=== PATIENT | female | born 1995 | race Caucasian/White ===

== ENCOUNTER 2018-08-04 17:50 | Emergency (ER) | payer OTHER ==
--- NOTE | 2018-08-04 20:09 | ER Document Report ---
ED Medical Screen (RME) - General Chief Complaint: Leg Pain Stated Complaint: LEG SWELLING Time Seen by Provider: 08/04/18 19:59 TRAVEL OUTSIDE OF THE [place] IN LAST 30 DAYS: No - Related Data Allergies/Adverse Reactions: No Known Allergies Allergy (Unverified 08/04/18 17:56) Past Medical History - Social History Frequency of alcohol use: Occasional Renal/ Medical History: Denies: Hx Peritoneal Dialysis Past Surgical History: Reports: Hx Tonsillectomy Physical Exam - Vital signs Vitals: Temp Pulse Resp BP Pulse Ox 98.0 F 79 16 109/71 98 08/04/18 18:09 08/04/18 18:09 08/04/18 18:09 08/04/18 18:09 08/04/18 18:09 Course - Re-evaluation Re-evalutation: 08/04/18 20:09 22-year-old female presents for evaluation of a swollen left lower extremity following an 11-hour car trip. She was seen at urgent care and told to come to the emergency room for further investigation. We will obtain ultrasound of the left lower extremity will obtain test and CBC. I have seen and performed a rapid medical screening examination on this patient. This patient will require further evaluation and disposition determination by a secondary provider. - Vital Signs Vital signs: Temp Pulse Resp BP Pulse Ox 98.0 F 79 16 109/71 98 08/04/18 18:09 08/04/18 18:09 08/04/18 19:59 08/04/18 18:09 08/04/18 18:09
[2018-08-04 21:02] LABS: ABSOLUTE EOSINOPHILS # (AUTO) 0.3 10^3/uL (0.0-0.6); ABSOLUTE LYMPHOCYTES (AUTO) 1.9 10^3/uL (0.5-4.7); ABSOLUTE MONOCYTES (AUTO) 0.7 10^3/uL (0.1-1.4); ABSOLUTE NEUT (AUTO) 5.7 10^3/uL (1.7-8.2); BASOPHILS % (AUTO) 0.5 % (0-2); EOSINOPHILS % (AUTO) 3.1 % (0-6); HEMATOCRIT 42.7 % (36.0-47.0); HEMOGLOBIN 14.9 g/dL (12.0-15.5); LYMPHOCYTES % (AUTO) 22.1 % (13-45); MEAN CORPUSCULAR HEMOGLOBIN 29.5 pg (27.0-33.4); MEAN CORPUSCULAR HGB CONC 34.9 g/dL (32.0-36.0); MEAN CORPUSCULAR VOLUME 85 fl (80-97); MONOCYTES % (AUTO) 7.7 % (3-13); PLATELET COUNT 236 10^3/uL (150-450); RED BLOOD COUNT 5.05 10^6/uL (3.72-5.28); RED CELL DISTRIBUTION WIDTH 12.4 % (11.5-14.0); SEGMENTED NEUTROPHILS % (AUTO) 66.6 % (42-78); TOTAL CELLS COUNTED % (AUTO) 100 %; WHITE BLOOD COUNT 8.6 10^3/uL (4.0-10.5)
--- NOTE | 2018-08-04 22:22 | ER Document Report ---
ED Extremity Problem, Lower - General Chief Complaint: Leg Pain Stated Complaint: LEG SWELLING Time Seen by Provider: 08/04/18 19:59 Mode of Arrival: Ambulatory Information source: Patient TRAVEL OUTSIDE OF THE [place] IN LAST 30 DAYS: No - HPI Patient complains to provider of: Pain Location: Leg Occurred: This afternoon Onset/Duration: Gradual Quality of pain: Achy Severity: Mild Pain Level: 2 Recent injury: No Exacerbated by: Movement Notes: Patient is a 22-year-old female presenting to the emergency room complaining of pain in her left leg, patient just completed an [address] from [facility] and arrived to [facility] at 4 PM today, at which time she promptly signed herself into the emergency room because she was having pain in the left leg and was concerned about the possibility of a DVT, patient has no history of DVT, she does not smoke cigarettes, she did recently quit, and she does not currently take any [id number]-hphysrz contraceptive, there is no injury to the lower extremity, she denies any chest pain or shortness of breath, simply states that she saw something on a television show regarding a DVT and therefore became concerned after her long drive today - Related Data Allergies/Adverse Reactions: No Known Allergies Allergy (Unverified 08/04/18 17:56) Past Medical History - General Information source: Patient - Social History Smoking Status: Former Smoker Frequency of alcohol use: Occasional Family History: Reviewed & Not Pertinent Patient has suicidal ideation: No Patient has homicidal ideation: No Renal/ Medical History: Denies: Hx Peritoneal Dialysis Past Surgical History: Reports: Hx Tonsillectomy Review of Systems - Review of Systems Constitutional: No symptoms reported EENT: No symptoms reported Cardiovascular: No symptoms reported Respiratory: No symptoms reported Gastrointestinal: No symptoms reported Genitourinary: No symptoms reported Female Genitourinary: No symptoms reported Musculoskeletal: See HPI Skin: No symptoms reported Hematologic/Lymphatic: No symptoms reported Neurological/Psychological: No symptoms reported -: Yes All other systems reviewed and negative Physical Exam - Vital signs Vitals: Temp Pulse Resp BP Pulse Ox 98.0 F 79 16 109/71 98 08/04/18 18:09 08/04/18 18:09 08/04/18 18:09 08/04/18 18:09 08/04/18 18:09 - Notes Notes: - General General appearance: Appears well, Alert In distress: None - HEENT Head: Normocephalic, Atraumatic Eyes: Normal Conjunctiva: Normal Extraocular movements intact: Yes Eyelashes: Normal Pupils: PERRL - Respiratory Respiratory status: No respiratory distress - Cardiovascular Rhythm: Regular - Abdominal Inspection: Normal - Back Back: Normal - Extremities General upper extremity: Normal inspection General lower extremity: Slight tenderness to palpate in the left suprapatellar space, no calf tenderness, distal sensation and motor is intact - Neurological Neuro grossly intact: Yes Orientation: AAOx4 Nancy Coma Scale Eye Opening: Spontaneous Nancy Coma Scale Verbal: Oriented [place] Coma Scale Motor: Obeys Commands Nancy Coma Scale Total: 15 - Psychological Associated symptoms: Normal affect, Normal mood - Skin Skin Temperature: Warm Skin Moisture: Dry Skin Color: Normal Course - Re-evaluation Re-evalutation: 08/05/18 00:07 Lower extremity Dopplers negative for DVT, patient was therefore advised to drink plenty of fluids, take Motrin as needed for pain, follow-up with her primary care provider or return if symptoms worsen, patient acknowledges understanding and agreement with this plan - Vital Signs Vital signs: Temp Pulse Resp BP Pulse Ox 98.6 F 63 18 107/86 H 100 08/04/18 22:32 08/04/18 22:32 08/04/18 22:32 08/04/18 22:32 08/04/18 22:32 - Laboratory Result Diagrams: 08/04/18 20:55 - Diagnostic Test Radiology reviewed: Image reviewed, Reports reviewed Discharge - Discharge Clinical Impression: Leg pain, left Condition: Stable Disposition: HOME, SELF-CARE Instructions: Leg Pain Nonspecific ([facility]), Possible Evolving Leg DVT ([facility]) Additional Instructions: Follow up with your primary care provider in one to 2 days. Return to the emergency room immediately if symptoms worsen or any additional concerns.
[2018-08-04 22:33] VITALS: BP 107/86
--- NOTE | 2018-08-05 00:58 | RADIOLOGY REPORT (SQ) ---
PROCEDURE: Ultrasound of the left lower extremity deep veins CLINICAL HISTORY and INDICATION: Leg pain COMPARISON: None. TECHNIQUE: Mackay scale imaging with duplex interrogation of the left lower extremity venous system was performed and multiple static images were obtained. FINDINGS: Utilizing compression and augmentation, there is no deep venous thrombus in the left common femoral, superficial femoral or popliteal veins. The left profunda femoris, posterior tibial and deep peroneal veins are patent and compressible. . The bilateral greater saphenous vein at the saphenofemoral junction is patent and compressible. There is no visualization of any subcutaneous fluid collections in either lower extremity. There is no visualization of any fluid collections in the right and left popliteal fossa. There is no evidence of reactive or pathological lymphadenopathy in the evaluated bilateral lower extremities. IMPRESSION: No deep venous thrombosis of the left lower extremity. Location of Interpretation: [id number]
== END 2018-08-04 22:33 | disposition home or self-care (01) ==
LOC: ER 17:50
DX: M79.605 Pain in left leg (principal); M79.89 Other specified soft tissue disorders
CPT/HCPCS: 36415; 81025; 85025; 93971; 99284